=== PATIENT | male | born 1945 | race Caucasian/White ===

== ENCOUNTER → 2016-05-17 17:43 | Observation (INO) | payer MEDICARE ==
[~2016-05-17] VITALS: Ht 162.6 cm; Wt 93.9 kg
--- NOTE | ~2016-05-17 | HEMODYNAMI ---
PATIENT:PETER POOL MEDICAL RECORD: [id number] : 49 LOCATION:[place] [address] ADMISSION DATE: 05/16/16 Generatedon:05/17/201613:51 Patient name: PETER POOL Patient #: [id number] SSN: : 1945 Date of study: 05/17/2016 Page: Of Hemodynamic Procedure Report Patient Data Patient Demographics Procedure consent was obtained First Name: PETER Gender: Male Last Name: CORINE : 1945 Patient #: [id number] Age: 70 year(s) Race: Unknown Additional ID: [id number] Contact details Address: [address] [address] State: [place] City: [place] Zip code: [address] Past Medical History Allergies: No known allergies Admission Admission Data Admission Date: 05/16/2016 Admission Time: 23:00 Room #: 2122 Lab Results Lab Result Date: 05/17/2016 Lab Result Time: 0:00 Biochemistry Name Units Result Min Max BUN mg/dl 18 --(---*)-- 7 18 Creatinine mg/dl 1.3 --(---*)-- 0.6 1.3 CBC Name Units Result Min Max Hemoglobin g/dl 14.3 --(*---)-- 13.5 17.5 Procedure Procedure Types Cath Procedure Diagnostic Procedure [facility] w/Coronaries Miscellaneous Procedures Moderate Sedation up to 15 minutes Procedure Description Procedure Date Procedure Date: 05/17/2016 Procedure Start Time: 13:37 Procedure End Time: 13:49 Procedure Staff Name Function Ozzy Lau MD Performing Physician Nayla Azevedo RN Nurse Brice Shelley RT Monitor Bacilio Burton RT Scrub Procedure Data Cath Procedure Fluoroscopy Diagnostic fluoroscopy Total fluoroscopy Time: 2.3 time: 2.3 min min Diagnostic fluoroscopy Total fluoroscopy dose: 570 dose: 570 mGy mGy Contrast Material Contrast Material Type Amount (ml) Isovue 300 91 Entry Location Entry Primary Successful Side Size Upsize Upsize Entry Closure Succes sful Closure Location (Fr) 1 (Fr) 2 (Fr) Remarks Device Remarks Femoral Right 5 Fr Exoseal artery Diagnostic catheters Device Type Used For End Catheter Placement Cordis 5Fr JL 4.0 Left Coronary Catheter (MP) Angiography Cordis 5Fr 3DRC Catheter Right Coronary (MP) Angiography Diagnostic Infinity 5Fr SVG Angiography AR MOD Catheter Cordis 5Fr Pigtail LV Angiography Catheter (MP) Procedure Complications No complications Procedure Medications Medication Administration Route Dosage Oxygen NC 2 l/min Heparin Flush Bag added to field 2 bags (1000units/500ml NS) Lidocaine 2% added to field 20 Lopressor I.V. 5 mg Versed I.V. 1 mg Fentanyl I.V. 50 mcg Versed I.V. 1 mg Fentanyl I.V. 50 mcg Hemodynamics Rest HGB: 14.3 (g/dl) Heart Rate: 120 (bpm) Pressure Samples Time Site Value (mmHg) Purpose Heart Use Rate(bpm) 13:43 LV 154/12,21 EDP 88 Gradients Valve Time Site Site Mean SEP/DFP Peak To Heart Use 1 2 (mmHg) (sec/min) Peak Rate (mmHg) (bpm) Aortic 13:44 LV AO 87 Snapshots Pre Cath Intra NCS Post Cath Vital Signs Time Heart Resp SPO2 etCO2 [id number] NIBP (mmHg) Rhythm Pain Sedation Rate (ipm) (%) (mmHg) (mmHg) Status Level (bpm) 13:23:14 113 18 97 0 0 151/81(105) ST 0 (11) 10(A) , No pain 13:27:32 113 19 97 0 0 141/80(99) ST 0 (11) 10(A) , No pain 13:31:48 110 23 94 0 0 143/77(102) ST 0 (11) 10(A) , No pain 13:35:56 105 18 95 0 0 136/68(89) ST 0 (11) 10(A) , No pain 13:40:10 89 18 95 0 0 141/75(105) ST 0 (11) 9(A) , No pain 13:44:26 87 21 96 0 0 125/70(94) ST 0 (11) 9(A) , No pain 13:47:41 86 20 96 0 0 120/70(98) ST 0 (11) 9(A) , No pain Medications Time Medication Route Dose Verified Delivered Reason Notes Effec tiveness by by 13:23:33 Oxygen NC 2 Ozzy Hollandecca Per l/min [facility] Azevedo RN physician 13:23:41 Heparin Flush added 2 Ozzy Preciado used for Bag to bags [facility] procedure (1000units/500ml field MD CRUZ NS) 13:23:50 Lidocaine 2% added 20ml Ozzy Preciado used for to vial [facility] procedure field MD CRUZ 13:34:28 Versed I.V. 1 mg Ozzy Nayla for [facility] Azevedo RN sedation 13:34:39 Fentanyl I.V. 50 Ozzy Nayla for mcg [facility] Azevedo RN sedation 13:36:42 Versed I.V. 1 mg Ozzy Nayla for [facility] Azevedo RN sedation 13:36:53 Fentanyl I.V. 50 Ozzy Nayla for mcg [facility] Azevedo RN sedation 13:38:26 Lopressor I.V. 5 mg Ozzy Nayla Per [facility] Azevedo RN physician Procedure Log Time Note 12:50:12 Brice Shelley RT(R) sent for patient. Start room use. 13:01:13 Time tracking: Regular hours 13:01:17 Plan of Care:Hemodynamics will remain stable., Cardiac rhythm will remain stable., Comfort level will be maintained., Respiratory function will remain adequate., Patient/ family verbilizes understanding of procedure., Procedure tolerated without complication., Recovers from procedure without complications.. 13:15:35 Patient received from PCU to CCL 1 Alert and oriented. Tansferred to table in Supine position. 13:15:37 Warm blankets applied, and chapito hugger turned on for patient comfort. 13:15:37 Correct patient and procedure confirmed by team. 13:15:38 Signed procedure consent form obtained from patient. 13:15:39 ECG and BP/O2 sat monitors applied to patient. 13:22:07 Vital chart was started 13:23:33 Oxygen 2 l/min NC was administered by Nayla Azevedo RN; Per physician; 13:23:41 Heparin Flush Bag (1000units/500ml NS) 2 bags added to field was administered by Ozzy Lau MD; used for procedure; 13:23:50 Lidocaine 2% 20ml vial added to field was administered by Ozzy Lau MD; used for procedure; 13:32:38 Baseline sample Acquired. 13:32:42 Rhythm: sinus tachycardia 13:32:43 Full Disclosure recording started 13:32:48 H&P Date Dictated: 05/17/2016 Within 30 days and on chart.. 13:32:49 Pre-procedure instructions explained to patient. 13:32:49 Pre-procedure instructions explained to patient. 13:32:49 Pre-op teaching completed and patient verbalized understanding. 13:32:52 Family in patients room. 13:32:53 Patient NPO since Midnight. 13:32:59 Patient allergic to No known allergies 13:33:02 Is the patient allergic to Iodine/contrast media? No. 13:33:06 Is patient on blood thinner?No 13:33:07 Patient diabetic? No. 13:33:08 ----Pre-sedation anethsthesia assessment.---- 13:33:11 Previous problem with sedation/anesthesia? No ? 13:33:13 Snore? Yes 13:33:14 Sleep apnea? No 13:33:16 Deviated septum? No 13:33:17 Opens mouth fully? Yes 13:33:19 Sticks out tongue? Yes 13:33:23 Airway obstruction? No ? 13:33:29 Dentures? Yes in tight 13:33:34 Pre procedure: right dorsailis pedis pulse 1+ Palpable, but thready & weak; easily obliterated 13:33:37 Patient pain scale 0/10 ?. 13:33:42 IV patent on arrival in right wrist with 0.9% NaCl at 10ml/hr. 13:34:03 Lab Result : BUN 18 mg/dl 13:34:03 Lab Result : Hemoglobin 14.3 g/dl 13:34:03 Lab Result : Creatinine 1.3 mg/dl 13:34:06 Lab results completed and on chart. 13:34:09 Right groin area was prepped with chlora-prep and draped in sterile fashion 13:34:11 Alarms reviewed by R. N. 13:34:12 Sharps counted by scrub and verified by R.N. 13:34:13 --------ALL STOP TIME OUT------ 13:34:13 Final Timeout: patient, procedure, and site verified with staff and physician. All members of the team are in agreement. 13:34:16 Right groin site verified by team. 13:34:19 Physical assessment completed. ASA score P 2 - A patient with mild systemic disease as per Ozzy Lau MD. 13:34:24 Sedation plan: IV Moderate Sedation Versed, Fentanyl 13:34:28 Versed 1 mg I.V. was administered by Nayla Azevedo RN; for sedation; 13:34:39 Fentanyl 50 mcg I.V. was administered by Nayla Azevedo RN; for sedation; 13:36:42 Versed 1 mg I.V. was administered by Nayla Azevedo RN; for sedation; 13:36:44 Use device set Femoral Dx 13:36:46 Acist Syringe opened to sterile field. 13:36:46 Bag Decanter opened to sterile field. 13:36:46 Medline Cath Pack opened to sterile field. 13:36:47 Terumo 5Fr Alexander Sheath opened to sterile field. 13:36:47 St Porter 260cm J .035 wire opened to sterile field. 13:36:48 Acist Hand Control opened to sterile field. 13:36:49 Acist Manifold opened to sterile field. 13:36:49 Diagnostic Infinity 5Fr Multipack catheter opened to sterile field. 13:36:49 Tegaderm 4 x 4 opened to sterile field. 13:36:53 Fentanyl 50 mcg I.V. was administered by Nayla Azevedo RN; for sedation; 13:36:53 Procedure started. 13:37:15 Local anesthetic to right femoral artery with Lidocaine 2% by Ozzy Lau MD.INITIAL ACCESS ONLY 13:37:22 A 5 Fr sheath was inserted into the Right Femoral artery 13:37:30 A Cordis 5Fr JL 4.0 Catheter (MP) was advanced over the wire and used for Left Coronary Angiography. 13:38:13 LCA angiography performed. 13:38:26 Lopressor 5 mg I.V. was administered by Nayla Azevedo RN; Per physician; 13:38:52 Catheter removed. 13:38:58 A Cordis 5Fr 3DRC Catheter (MP) was advanced over the wire and used for Right Coronary Angiography. 13:39:05 Zero performed for pressure channel P1 13:39:18 RCA angiography performed. 13:40:46 Catheter removed. unable to cannulate vessel. 13:41:03 A Diagnostic Infinity 5Fr AR MOD Catheter was advanced over the wire and used for SVG Angiography. 13:41:24 RCA angiography performed. 13:42:23 Catheter removed. 13:42:33 A Cordis 5Fr Pigtail Catheter (MP) was advanced over the wire and used for LV Angiography. 13:42:39 LV angiography performed. 13:42:42 LV gram done using GILLIS 13:42:43 LV hemodynamics recorded. 13:42:46 Injector settings: Ml/sec: 10, Volume: 20, 13:44:38 EF : 50 % 13:44:39 Catheter removed. 13:44:57 Sheath removed intact; hemostasis achieved with Exoseal to the Right Femoral artery. 13:45:00 Procedure ended.(Physican Out) 13:45:53 Fluoroscopy time 02.30 minutes. 13:45:58 Fluoroscopy dose: 570 mGy 13:45:58 Flurop Dose total: 570 13:46:03 Contrast amount:Isovue 300 91ml. 13:46:04 Sharps counted by scrub and verified by R.N. 13:46:05 Insertion/operative site no bleeding no hematoma. 13:46:07 Post-op/insertion site Right Femoral artery dressed using a 4 x 4 and Tegaderm. 13:46:10 Post right femoral artery:stable 13:46:12 Post Procedure Pulses reassessed and unchanged 13:46:14 Post procedure: right dorsailis pedis pulse 1+ Palpable, but thready & weak; easily obliterated. 13:46:18 Post procedure rhythm: sinus rhythm 13:46:20 Post procedure instruction explained to patient.Patient verbalizes understanding. 13:46:43 Cordis 5Fr Exoseal opened to sterile field. 13:48:12 Procedure and supply charges have been captured, reviewed, submitted and are correct. 13:49:33 Procedure Complication : No complications 13:49:35 Vital chart was stopped 13:49:36 See physician's report for complete and final results. 13:49:40 Report given to PCU. 13:49:43 Patient transfered to PCU with Bed. 13:49:45 Procedure ended. 13:49:45 Full Disclosure recording stopped 13:49:48 End room use (Document Last) Device Usage Item Name Manufacture Quantity Catalog Hospital Part Current Minimal Lo t# / Number Charge Number Stock Stock Serial# Code Acist Acist 1 21627 [id number] [id number] 20 Syringe [employer] Inc Bag Microtek 1 2002S 689992 24148 741412 5 Decanter [employer] Inc. Medline Cardinal 1 [id number] 299607 81821 149845 5 Cath Pack Health Terumo 5Fr Terumo 1 [id number] 465712 112966 358309 [address] [facility] 1 823355 101094 828155 102067 30 260cm J .035 wire Acist Hand Acist 1 60557 612250 736016 496803 5 Control Medical Systems Inc Acist Acist 1 18287 492331 417593 079906 5 Manifold [employer] Inc Diagnostic Cardinal 1 [id number] 153208 19565 930077 30 Infinity Health 5Fr Multipack catheter Tegaderm 4 3M 1 1626W 992776 154256 866465 5 x 4 Cordis 5Fr Cardinal 1 152595 5 JL 4.0 Health Catheter (MP) Cordis 5Fr Cardinal 1 237706 5 3DRC Health Catheter (MP) Diagnostic Cardinal 1 [id number] 475673 712421 439192 15 Infinity Health 5Fr AR MOD Catheter Cordis 5Fr Cardinal 1 837854 5 Pigtail Health Catheter (MP) Cordis 5Fr Cardinal 1 EX500 983071 994200 931501 10 Joyent Health Signature Audit [place] Stage Time Signature Unsigned Intra-Procedure 05/17/2016 Brice Shelley 1:50:57 PM RT(R) Signatures Monitor : Brice Shelley RT Signature : Date : Time : [facility] [address] [facility] [address]
--- NOTE | ~2016-05-17 | OP ---
PATIENT NAME: PETER POOL MEDICAL RECORD: [id number] :49 LOCATION:D.M2 D.2122 ADMISSION DATE:05/16/16 SURGEON: EVELINA BELLO MD DATE OF OPERATION: 05/17/2016 PROCEDURES: Left heart catheterization, selective coronary angiography, right femoral artery approach. CATHETERS: A 5-Bulgarian sheath, 5/4 left and right Crow, 5/4 pig. The procedure was well tolerated. The patient returned to the castro, sheath removed. ExoSeal device placed. FINDINGS: Left ventriculography in the 30-degree GILLIS view: Normal wall motion, normal systolic function. CORONARY ANATOMY: LEFT MAIN: Left main is free of disease. LAD: Free of disease in the diagonal system. CIRCUMFLEX: Free of disease in the marginal system. RIGHT CORONARY ARTERY: Somewhat codominant system, free of disease. IMPRESSION: Normal systolic function, normal coronary anatomy, noncardiac etiology of symptoms. TRANSINT:[id number] Voice Confirmation ID: [id number] DOCUMENT ID: [id number] EVELINA BELLO MD CC: [id number] DICTATION DATE: 05/17/16 1354 BALLAST INSPECTOR: 05/17/162004 DIS IN 05/17/16 [facility] [address] [place] [address]
[2016-05-17 07:35] LABS: BASOPHILS 0.1 % (0.0-2.0); EOSINOPHILS 0 % (0-7); HEMATOCRIT 41.9 % (42.0-54.0); HEMOGLOBIN 14.3 g/dL (13.5-17.5); IMMATURE GRANULOCYTES 0.3 % (0-5); LYMPHOCYTES 17.9 % (15-50); MCH 33.1 pg (26.0-34.0); MCHC 34.1 g/dL (31.0-37.0); MEAN PLATELET VOLUME 9.7 fL (7.4-10.4); MONOCYTES 9.3 % (2-11); NEUTROPHILS 72.4 % (40-80); PLATELET COUNT 162 10x3/uL (130-400); RBC 4.32 10x6/uL (4.20-6.10); WBC 13.7 10x3/uL (4.8-10.8)
[2016-05-17 08:14] LABS: CALC OSMOLALITY 277 mosm/kg (275-300); CALCIUM 9.7 mg/dL (8.5-10.1); CARBON DIOXIDE 26.6 mmol/L (21.0-32.0); CHLORIDE - SERUM 100 mmol/L (98-107); CKMB 4.8 U/L (0.0-3.6); CREATINE KINASE 401 UL (21-232); CREATININE - SERUM 1.3 mg/dL (0.6-1.3); GLUCOSE 174 mg/dL (74-106); POTASSIUM - SERUM 4.5 mmol/L (3.5-5.1); SODIUM 136 mmol/L (136-145); TROPONIN-I < 0.017 ng/mL (0.000-0.060); UREA NITROGEN 18 mg/dL (7-18); eGFR NON AFRICAN AMERICAN 58 mL/min (90-120)
[2016-05-17 08:31] VITALS: BP 165/78; BMI 35.6
[2016-05-17 08:37] VITALS: BP 156/74
--- NOTE | 2016-05-17 08:40 | NUR ---
WHEN DOING BEDSIDE SHIFT REPORT, PATIENT CO CHEST PAIN AND VOMITED BROWN EMESIS. DR. NOVAK HERE. ORDERS RECEIVED. MONITOR SHOWS ST @103. PT CLAMMY O2 ON @ 4 L. BED , GOWN CHANGED. ZOFRAN 4 MG GIVEN IV. ORDERED. 100 NS STARTED @ 100 CC/HR. VS STABLE. PT TO BE NPO AFTER 100 AM FOR CATH.
--- NOTE | 2016-05-17 10:51 | NUR ---
PT FEELING BETTER. NO MORE VOMITING. WILL CONTINUE TO MONITOR
[2016-05-17 12:32] VITALS: BP 143/63
--- NOTE | 2016-05-17 13:21 | NUR ---
TO PROMOTIONAL MARKETING ANALYST
[2016-05-17 13:38] VITALS: Ht 162.6 cm; Wt 93.9 kg
--- NOTE | 2016-05-17 15:48 | NUR ---
@ 1400 RETURNED FROM LINK KNITTING MACHINE OPERATOR. SITE CLEAN AND DRY WITH NO BLEEDING OR EDEMA. BROTHER AT BEDSIDE. VS REMAIN STABLE. PEDIAL PULSE PRESENT. WILL CONTINUE TO MONITOR.
[2016-05-17 16:07] VITALS: BP 110/53
--- NOTE | 2016-05-17 16:07 | NUR ---
PATIENT HAS REMAINED FLAT. CATH SITE CLEAN AND DRY WITHOUT ANY EDEMA BLEEDING. NO APPARENT DISTRESS.
--- NOTE | 2016-05-17 17:40 | NUR ---
1700 PATIENT SITTING UP IN BED. CATH SITE REMAINS CLEAN DRY NO EDEMA NO BLEEDING. NO DISTRESS SITTING UP IN BED. IV REMOVED WITH TIP INTACT. BROTHER RECEIVED D/C INSTRUCTIONS AND VERBALIZE UNDERSTANDING. BROTHER HELPING PT DRESSED.
--- NOTE | 2016-05-17 17:42 | NUR ---
PT TO CAR VIA WC WITH BROTHER DRIVING.
[~2016-05-17 17:43] MED LIST: CLARITIN 10 MG10 MG PO; TOPROL XL50 MG PO; ZESTRIL10 MG PO; ZOCOR40 MG PO
--- NOTE | 2016-05-18 08:23 | HP ---
PATIENT: PETER POOL MEDICAL RECORD: [id number] ACCOUNT: [id number] LOCATION:[address] : [birth year] ADMISSION DATE: 05/16/16 HISTORY AND PHYSICAL EXAMINATION HISTORY OF PRESENT ILLNESS: A 70-year-old gentleman with known cardiovascular history. He has a history of hypertension and dyslipidemia, presented with chest pain to [facility], noted to have an abnormal ECG; this showed simply left axis deviation. He had an elevated CK, CK-MB is borderline and troponin was negative. He is noted to have an elevated white blood cell count. We are asked to see him concerning his cardiovascular status. PAST MEDICAL HISTORY: 1. History of hypertension. 2. Dyslipidemia. 3. Osteoarthritis. 4. Gastroesophageal reflux disease. MEDICATIONS: Include Zestril 10 daily, metoprolol 50 daily and Zocor 20 daily. SOCIAL HISTORY: Lives by himself in [place]. He is a nonsmoker. He takes care of all his ADLs usually except for current illness. ALLERGIES: None known. REVIEW OF SYSTEMS: The patient reports easy bruising but reports no swollen glands. The patient reports no fever, no night sweats, no significant weight gain, no significant weight loss. No significant exercise tolerance. The patient reports no dry eyes, no irritation, no vision change. Patient reports no difficulty hearing and no ear pain. Patient reports no frequent nose bleeds or nose and sinus problems. Patient reports on arm pain on exertion. No shortness of breath while lying down. No history of heart murmur. Patient reports no cough, no wheezing or coughing up blood. Patient reports no abdominal pain, no vomiting. Normal appetite. No diarrhea and not vomiting blood. No ____ and no constipation. Patient reports no incontinence. No difficulty urinating. No hematuria. No increased frequency. Patient reports no muscle aches. No weakness, no arthralgias, no back pain. No swelling of the extremities. Patient reports no abnormal mole, no jaundice, no rashes. Reports no loss of consciousness. No weakness and no numbness. No seizures, dizziness, or headaches. The patient reports no depression, no sleep disturbance, feeling safe in a relationship and no alcohol abuse. Patient reports on fatigue. Reports no runny nose or sinus pressure. No itching, no hives, and no frequent sneezing. PHYSICAL EXAMINATION: GENERAL: Pleasant gentleman, somewhat uncomfortable due to nausea. VITAL SIGNS: Blood pressure 165/78 and pulse 100. HEENT: Normocephalic and atraumatic. NECK: No JVD or bruit. HEART: Regular. LUNGS: Good air excursion. ABDOMEN: Soft, nontender. Hyperactive bowel sounds. EXTREMITIES: Pulses 2+. No edema. DIAGNOSTIC DATA: ECG shows left axis ____, poor R-wave progression. HISTORY AND PHYSICAL [id number] PETER POOL IMPRESSION: Questionable acute coronary syndrome, differential could also be viral gastroenteritis given borderline enzymes. We will plan for diagnostic angiography intervention based on the above. TRANSINT:[id number] Voice Confirmation ID: [id number] DOCUMENT ID: [id number] EVELINA BELLO MD at 0823 CC: [id number] DICTATION DATE: 05/17/16 0853 CAMOUFLAGE SPECIALIST: 05/17/16 1224 DIS IN 05/17/16 [place] [address] [place] [address]
== END | disposition home or self-care (01) ==
LOC: D.M2 05-16 23:00 → UNDOADMOB 05-16 23:00 → D.M2 05-16 23:00 → OBSVTIME 05-16 23:00 → D.M2 05-16 23:00
PROVIDERS: ADMIT Internal Medicine Interventional Cardiology
DX: R07.89 Other chest pain (principal); I10 Essential (primary) hypertension; E78.5 Hyperlipidemia, unspecified; M19.90 Unspecified osteoarthritis, unspecified site; K21.9 Gastro-esophageal reflux disease without esophagitis